=== PATIENT | female | born 1965 | race Caucasian/White ===

== ENCOUNTER 2019-02-18 04:14 | Emergency (ER) | payer OTHER ==
[~2019-02-18] VITALS: Ht 175.3 cm; Wt 99.8 kg
[2019-02-18 04:41] LABS: Hematocrit 41.2 % (36.0-46.0); Hemoglobin 13.9 g/dL (12.2-16.2); Mean Corpuscular Hemoglobin 32.9 pg (28.0-32.0); Mean Corpuscular Hgb Conc. 33.9 g/dL (32.0-36.0); Mean Corpuscular Volume 97.2 fL (80.0-100.0); Platelet Count (auto) 291 10^3/uL (140-450); Red Blood Cells 4.24 10^6/uL (4.0-5.20); Red Cell Distribution Width 13.8 % (11.8-14.3); White Blood Cell 4.4 10^3/uL (4.4-10.8)
[2019-02-18 04:47] LABS: Band Neutrophils % (manual) 0; Basophils % (manual) 0 (0.0-2.0); Blast Cells 0; Metamyelocytes % 0; Myelocytes % 0; Promyelocytes % 0
[2019-02-18 05:07] LABS: Acetaminophen < 2.0 ug/mL (10-30); BUN/Creatinine Ratio 10.8; Calcium 7.8 mg/dL (8.5-10.1); Potassium 4.2 mmol/L (3.5-5.1); Salicylate < 1.7 mg/dL (2.8-20.0)
[2019-02-18 05:09] LABS: Bilirubin, Total 0.2 mg/dL (0.2-1.0); Total Protein 7.6 g/dL (6.4-8.2)
[2019-02-18 05:49] LABS: Eosinophils % (manual) 2 (0-7); Lymphocytes % (manual) 60 (10.0-50.0); Monocytes % (manual) 6 (0-12); Reactive Lymphocytes 2
[2019-02-18] MEDS ORDERED: SODIUM CHLORIDE 0.9% 2,000 ML IV ONE (06:00)
[2019-02-18] MEDS ORDERED: MULTIPLE VITAMIN 10 ML, MAGNESIUM SULF SDV 50% 8 MEQ, THIAMINE INJ 100 MG in SODIUM CHL... IV ONE (06:15)
[2019-02-18 06:55] LABS: Urine WBC None Seen /hpf (0 - 5)
[2019-02-18 07:02] LABS: Urine Bacteria NONE SEEN /hpf (None Seen); Urine Blood Negative /uL (Negative); Urine Specific Gravity 1.004 (1.001-1.035)
[2019-02-18 07:26] LABS: Amphetamine Screen, Urine NEGATIVE (NEGATIVE); Barbiturate Scree,Urine NEGATIVE (NEGATIVE); Benzodiazephine Screen, Urine POSITIVE (NEGATIVE); Cannabinoid Screen, Urine NEGATIVE (NEGATIVE); Cocaine Screen, Urine NEGATIVE (NEGATIVE); Opiate Scree,Urine NEGATIVE (NEGATIVE); Phencyclidine Screen, Urine NEGATIVE (NEGATIVE)
[2019-02-18] MEDS ORDERED: SODIUM CHLORIDE 0.9% 500 ML IV ONE (07:52)
[2019-02-18 17:51] VITALS: BP 148/85
[2019-02-19] MEDS ORDERED: MULTIPLE VITAMIN 10 ML, MAGNESIUM SULF SDV 50% 8 MEQ, THIAMINE INJ 100 MG in SODIUM CHL... IV SCH (12:00)
== END 2019-02-18 18:14 | disposition short-term general hospital (02) ==
LOC: ER 04:14 → EDBD 04:14 → ER 18:14
DX: T42.4X2A Poisoning by benzodiazepines, intentional self-harm, initial encounter (principal); F32.9 Major depressive disorder, single episode, unspecified; I10 Essential (primary) hypertension; F10.920 Alcohol use, unspecified with intoxication, uncomplicated; Y90.0 Blood alcohol level of less than 20 mg/100 ml; Y92.89 Other specified places as the place of occurrence of the external cause
CPT/HCPCS: 36415; 80053; 80307; 80320; 80329; 81001; 85007; 85027; 93005; 94761; 96365; 99285; J3411; J3475; J7030